=== PATIENT | female | born 1995 | race Caucasian/White ===

== ENCOUNTER → 2017-12-26 | Outpatient (CLI) | payer OTHER ==
--- NOTE | 2017-12-26 13:27 | Diagnostic Imaging Report ---
INDICATION: dates and anatomy. TECHNIQUE: Multiple real-time grayscale images were obtained over the gravid uterus. COMPARISON: None. FINDINGS: The single live intrauterine is identified with a heart rate of 142 beats per minute. The cervix is closed and measures 5.8 cm. The placenta is posterior and low lying. There is no overt previa. Fetus is in cephalic presentation. The amniotic fluid volume is normal. Visualized anatomy is normal. No anomalies identified. Biometrical measurements are as follows: Biparietal 5.0 cm, age 21 weeks 1 days. Head circumference 18.9 cm, age 21 weeks 2 days. Abdominal circumference 16.1 cm, age 21 weeks 2 days. Femur length 3.7 cm, age 21 weeks 6 days. Sonographic estimate age: 21 weeks 3 days. Sonographic estimated date of delivery: 05/05/18. Estimated Weight: 422 gm (+/- 62 gm). LMP percentile: 68%. heart rate: 142 beats per minute. number: 1 of 1. IMPRESSION: 1. Single live intrauterine 21 weeks 3 days with a due date of 05/05/2018. 2. Low-lying posterior placenta. Followup recommended. 3. No anomalies identified. Dictated by: Dictated on workstation # [id number]
== END ==
LOC: RAD 11:58
PROVIDERS: ATTEND Obstetrics & Gynecology
DX: Z34.82 Encounter for supervision of other normal pregnancy, second trimester (principal); Z3A.21 21 weeks gestation of pregnancy
CPT/HCPCS: 76805